=== PATIENT | female | born 1940 | race Caucasian/White ===

== ENCOUNTER 2016-07-18 19:06 | Emergency (ER) | payer MEDICARE, OTHER ==
[~2016-07-18] VITALS: Ht 172.7 cm; Wt 100.0 kg
[~2016-07-18 19:06] MED LIST: ALPR.25 PO; ASPI325T PO; FLUO-1 PO; LIPI40TA PO; LISI20 PO; METO25 PO; TAB-TAB PO; TRAM50TA PO; VITATAB25 PO
[2016-07-18 19:09] VITALS: BP 146/97; PULSE 77; RESP 20; TEMP 97.7; O2SAT 97
--- NOTE | 2016-07-18 19:39 | PD ---
HPI Chief Complaint: Flank/Kidney Pain Time Seen by Provider: 19:39 Travel History International Travel<30 days: No Contact w/Intl Traveler<30days: No Traveled to known affect area: No History of Present Illness HPI 76-year-old female presents to the emergency department for evaluation of right- sided abdominal pain that radiates to the right back. Patient states she had an injection to her groin by a physician on July 12, 2016. She states that she started with this pain on July 13, 2016. However, it resolved until today. She went to the [facility] for lunch and had a Fatoumata cheese steak sandwich. She states that after eating it, the pain returned. The patient reports nausea, but no vomiting. She states she had a normal bowel movement today without blood. The patient reports history of hysterectomy, appendectomy. Patient denies any fevers or chills. No chest pain or shortness of breath. She does report a history of nephrolithiasis, but states she has not had any issues with this and she was 31 years old. Patient denies any urinary symptoms. PFSH Past Medical History Hx Anticoagulant Therapy: Yes (BABY ASPRIN ) Arthritis: Yes Asthma: No Atrial Fibrillation: Yes Autoimmune Disease: Yes (FIBROMYALGIA) Blood Disorders: No Anxiety: Yes Depression: Yes Heart Rhythm Problems: Yes Cancer: Yes (SKIN) Cardiac Catheterization: Yes Cardiovascular Problems: Yes (HTN, HYPERLIPIDIMA ) High Cholesterol: Yes Chemotherapy: No Chest Pain: Yes Congestive Heart Failure: No COPD: No Cerebrovascular Accident: Yes (2011) Diabetes: No Diminished Hearing: No Endocrine: No Fibromyalgia: Yes Gastrointestinal Disorders: Yes GERD: No Glaucoma: No Genitourinary: No Headaches: No Hepatitis: No Hiatal Hernia: No Hypertension: Yes Immune Disorder: Yes (FIBROMYALGIA) Implanted Vascular Access Dvce: Yes Kidney Stones: Yes Musculoskeletal: Yes (LUMBAR LAMINECTOMY) Neurologic: Yes (TIA, MIGRAINES) Psychiatric: No Reproductive: No Respiratory: Yes Migraines: Yes Myocardial Infarction: Yes Radiation Therapy: No Renal Failure: No Seizures: No Sickle Cell Disease: No Sleep Apnea: Yes Thyroid Disease: No Ulcer: No Menopausal: Yes Past Surgical History Abdominal Surgery: Yes (LAP APPENDECTOMY 2006) AICD: No Appendectomy: Yes Arteriovenous Shunt: No Body Medical Devices: CARDIAC STENT ; NADIA LOWER BACK; PLATE NECK Cardiac Surgery: Yes (2 ABLATIONS) Cholecystectomy: No Coronary Stent: Yes Ear Surgery: No Endocrine Surgery: Yes (tonsillectomy) Eye Surgery: No Genitourinary Surgery: Yes (2 perirectal surgeries) Gynecologic Surgery: Yes (HYSTERECTOMY) Hysterectomy: Yes Insulin Pump: No Joint Replacement: No Neurologic Surgery: Yes (ANTERIOR CERVICAL FUSION 2007; LUMBAR LAMINECTOMY ) Oral Surgery: Yes (SINSUS SX) Pacemaker: No Thoracic Surgery: No Tonsillectomy: Yes Other Surgery: Yes (DEVIATED SEPTUM) Family History Family Hypercholesterolemia: Yes Social History Alcohol Use: No Tobacco Use: No Substance Use: No Allergies-Medications (Allergen,Severity, Reaction): Coded Allergies: Bees (Verified Allergy, Severe, BEE STING ANTI-VENOM, 07/18/16) Epinephrine (Verified Allergy, Severe, POSSIBLE ALLERGY TO EPINEPHRINE, ) Plavix (Verified Allergy, Severe, 07/18/16) Ritalin (Verified Allergy, Severe, MAKES ME A ZOMBIE, 07/18/16) Flexeril (Verified Allergy, Unknown, 07/18/16) unsure of rxn Aspirin (Verified Adverse Reaction, Severe, CAN TAKE BABY ASA, 07/18/16) Reported Meds & Prescriptions Reported Meds & Active Scripts Active Prinivil 20 mg (Lisinopril) 20 Mg Tab 40 Mg PO DAILY 30 Days Xanax 0.25 Mg (Alprazolam) Alprazolam 0.25 mg Tab 0.25 Mg PO Q8H PRN Tramadol Hcl (Tramadol HCl) 50 Mg Tab 100 Mg PO BID PRN Reported Vitamin D-1000 (Cholecalciferol) 1,000 Unit Tab 2,000 Unit PO DAILY Aspirin 325 Mg Tab (Aspirin) 325 Mg Tab 81 Mg PO DAILY Multivitamin (Multivitamins) 1 Tab Tab 1 Tab PO DAILY Lipitor (Atorvastatin Calcium) 40 Mg Tab 40 Mg PO HS Prozac (Fluoxetine HCl) 10 Mg Cap 20 Mg PO DAILY Metoprolol Tartrate 25 mg (Metoprolol Tartrate) 25 Mg Tab 25 Mg PO BID Review of Systems Except as stated in HPI: all other systems reviewed are Neg Physical Exam Narrative GENERAL: Well-nourished, well-developed female patient, ambulatory. Afebrile. SKIN: Focused skin assessment warm/dry. HEAD: Normocephalic. Atraumatic. EYES: No scleral icterus. No injection or drainage. NECK: Supple, trachea midline. No JVD or lymphadenopathy. CARDIOVASCULAR: Regular rate and rhythm without murmurs, gallops, or rubs. RESPIRATORY: Breath sounds equal bilaterally. No accessory muscle use. Lungs sounds are clear to auscultation. GASTROINTESTINAL: Abdomen soft and nondistended. Patient has diffuse tenderness to palpation. MUSCULOSKELETAL: No cyanosis, or edema. BACK: Nontender without obvious deformity. Mild right CVA tenderness. Data Data Last Documented VS Vital Signs Date Time Temp Pulse Resp B/P Pulse Ox O2 Delivery O2 Flow Rate FiO2 07/18/16 19:36 60 18 07/18/16 19:09 97.7 146/97 97 Room Air Orders Complete Blood Count With Diff (07/18/16 19:38) Comprehensive Metabolic Panel (07/18/16 19:38) Lipase (07/18/16 19:38) Urinalysis - C+S If Indicated (07/18/16 19:38) Iv Access Insert/Monitor (07/18/16 19:38) Ecg Monitoring (07/18/16 19:38) Oximetry (07/18/16 19:38) Ondansetron Inj (Zofran Inj) (07/18/16 19:45) Sodium Chloride 0.9% Flush (Ns Flush) (07/18/16 19:45) Sodium Chlorid 0.9% 500 Ml Inj (Ns 500 M (07/18/16 19:45) Morphine Inj (Morphine Inj) (07/18/16 19:45) Ct Abd/Pel W/O Iv Contrast (07/18/16 ) Cath For Specimen (07/18/16 20:45) Sodium Chlorid 0.9% 500 Ml Inj (Ns 500 M (07/18/16 21:30) Labs Laboratory Tests Test 07/18/16 07/18/16 20:00 21:00 White Blood Count 17.0 TH/MM3 Red Blood Count 5.63 MIL/MM3 Hemoglobin 17.3 GM/DL Hematocrit 52.3 % Mean Corpuscular Volume 93.0 FL Mean Corpuscular Hemoglobin 30.8 PG Mean Corpuscular Hemoglobin 33.1 % Concent Red Cell Distribution Width 13.6 % Platelet Count 161 TH/MM3 Mean Platelet Volume 9.1 FL Neutrophils (%) (Auto) 81.4 % Lymphocytes (%) (Auto) 9.8 % Monocytes (%) (Auto) 8.3 % Eosinophils (%) (Auto) 0.2 % Basophils (%) (Auto) 0.3 % Neutrophils # (Auto) 13.8 TH/MM3 Lymphocytes # (Auto) 1.7 TH/MM3 Monocytes # (Auto) 1.4 TH/MM3 Eosinophils # (Auto) 0.0 TH/MM3 Basophils # (Auto) 0.0 TH/MM3 CBC Comment DIFF FINAL Differential Comment Sodium Level 137 MEQ/L Potassium Level 4.0 MEQ/L Chloride Level 100 MEQ/L Carbon Dioxide Level 25.7 MEQ/L Anion Gap 11 MEQ/L Blood Urea Nitrogen 33 MG/DL Creatinine 1.66 MG/DL Estimat Glomerular Filtration 30 ML/MIN Rate Random Glucose 188 MG/DL Calcium Level 9.2 MG/DL Total Bilirubin 0.6 MG/DL Aspartate Amino Transf 35 U/L (AST/SGOT) Alanine Aminotransferase 69 U/L (ALT/SGPT) Alkaline Phosphatase 101 U/L Total Protein 7.5 GM/DL Albumin 3.8 GM/DL Lipase 166 U/L Urine Color YELLOW Urine Turbidity CLEAR Urine pH 6.0 Urine Specific [place] 1.022 Urine Protein NEG mg/dL Urine Glucose (UA) 300 mg/dL Urine Ketones TRACE mg/dL Urine Occult Blood MOD Urine Nitrite NEG Urine Bilirubin NEG Urine Urobilinogen LESS THAN 2.0 MG/DL Urine Leukocyte Esterase NEG Urine RBC 57 /hpf Urine WBC 2 /hpf Urine Squamous Epithelial <1 /hpf Cells Urine Mucus FEW /lpf Microscopic Urinalysis Comment CULT NOT INDICATED MDM Medical Decision Making Medical Screen Exam Complete: Yes Emergency Medical Condition: Yes Medical Record Reviewed: Yes Interpretation(s) CT abdomen/pelvis - CONCLUSION: 4 mm obstructing stone right UVJ with moderate perinephric stranding. Differential Diagnosis Diverticulitis versus UTI versus nephrolithiasis Narrative Course 76-year-old female presents to the emergency department for evaluation of abdominal pain that she had on July 13, but started up again today. CBC, CMP, lipase, UA are ordered and pending. CT the abdomen/pelvis with IV contrast is ordered and pending. IV access established. Patient is given normal saline 500 mL bolus, Zofran 4 mg IV, morphine 4 mg IV. CBC shows leukocytosis of 17.0. Compared to previous labs, this is similar to last labs in July 2015. CMP shows BUN 33, creatinine 1.66, glucose 188. Lipase is 166. UA shows moderate occult blood, 57 RBC, no evidence of acute infection. CT of the abdomen/pelvis shows 4 mm obstructing stone right UVJ with moderate perinephric stranding. Patient is given another 500 ml NS. Upon reexamination, patient states pain is tolerable at this time. I instructed the patient and need she needs to call tomorrow morning to see a urologist. I'll give her the name and number for urologist on-call. The patient states she feels comfortable going home. She will be discharged prescription for Lortab for pain and Flomax. She is to return for any acute worsening of symptoms. She verbalizes agreement and understanding. I discussed the case with my attending physician, Dr. Calderón, who is aware of all findings and agrees with plan and disposition. The patient was discharged in stable condition with instructions, including return instructions and follow up instructions. Diagnosis Primary Impression: Ureteropelvic junction calculus Referrals: Kel Jaramillo MD 1 day Patient Instructions: General Instructions, Ureteral Stones (ED) Additional Instructions: Take Lortab as directed as needed for pain. Do not take with your tramadol as this may be too much for you. Take Flomax as directed. This will help you pass the stone. Take Zofran as directed as needed for nausea. Follow up with urologist. Dr. Jaramillo is the urologist loss prevention guard today. Return to the emergency department for any acute, worsening of symptoms. Med/Other Pt SpecificInfo: Prescription(s) given Scripts Ondansetron Odt 4 Mg Tab4 Mg SL Q6HR PRN (Nausea/Vomiting) #16 TAB Ref 0 Prov:Delaney Maza 07/18/16 Tamsulosin (Flomax)0.4 Mg Cap0.4 Mg PO HS 7 Days Ref 0 Prov:Delaney Maza 07/18/16 Hydrocodone-Acetaminophen (Lortab)5-325 Mg Tab1 Tab PO Q6H PRN (PAIN) #16 TAB Ref 0 Prov:Elena Calderón MD 07/18/16 Disposition: 01 DISCHARGE HOME Condition: Stable Delaney Maza July 18, 2016 19:39
[2016-07-18] MEDS ORDERED: MORPHINE SULFATE 4 MG/ML INJ IV PUSH ONE (19:45)
[2016-07-18] MEDS ORDERED: SODIUM CHLORID 0.9% 500 ML INJ 500 ML IV ONE ×2 (19:45→21:30)
[2016-07-18] MEDS ORDERED: ONDANSETRON HCL 4 MG/2 ML VIAL IVP ONE (19:45)
[2016-07-18] MEDS ORDERED: SODIUM CHLORIDE 0.9% FLUSH 10 ML FLUSH IV FLUSH PRN (19:45)
[2016-07-18 20:13] LABS: AUTOMATED NEUTROPHIL # 13.8 TH/MM3 (1.8-7.7); BASOPHIL % 0.3 % (0.0-2.0); EOSINOPHIL % 0.2 % (0.0-4.0); HEMATOCRIT 52.3 % (35.0-46.0); HEMO FLAGS DIFF FINAL; LYMPH % 9.8 % (9.0-44.0); LYMPHOCYTE # 1.7 TH/MM3 (1.0-4.8); MEAN CORPUSCULAR HEMOGLOBIN 30.8 PG (27.0-34.0); MEAN CORPUSCULAR HGB CONC 33.1 % (32.0-36.0); MONO % 8.3 % (0.0-8.0); NEUT % 81.4 % (16.0-70.0); PLATELET COUNT 161 TH/MM3 (150-450); RED BLOOD COUNT 5.63 MIL/MM3 (4.00-5.30); RED CELL DISTRIBUTION WIDTH 13.6 % (11.6-17.2)
--- NOTE | 2016-07-18 20:31 | RADRPT ---
EXAM DATE/TIME: 07/18/2016 20:15 [place] COMPARISON: No previous studies available for comparison. INDICATIONS : Right flank pain today. ORAL CONTRAST: No oral contrast ingested. RADIATION DOSE: 11.42 CTDIvol (mGy) MEDICAL HISTORY : Stroke. Hypertension. Cardiovascular disease SURGICAL HISTORY : Hysterectomy. Appendectomy.lumbar laminectomy ENCOUNTER: Initial ACUITY: 1 day PAIN SCALE: 8/10 LOCATION: Right flank TECHNIQUE: Volumetric scanning of the abdomen and pelvis was performed. Using automated exposure control and ad justment of the mA and/or kV according to patient size, radiation dose was kept as low as reasonably achievable to obtain optimal diagnostic quality images. FINDINGS: Lung base is are clear. Marked coronary calcifications are noted. There is no pericardial effusion. The liver is free of focal defects Small stones are present in the gallbladder Granulomas are present in the spleen Pancreas and adrenals unremarkable. There is marked perinephric stranding about the right kidney with a stone the right ureteral pelvic junction. There is cyst in the left kidney measuring 3.1 cm. There are no left renal stones. Marked vascular calcifications are noted. Previous fixation seen in the lower lumbar spine In the pelvis multiple diverticula are noted without diverticulitis. There is no free air or obstruction There is no ascites or adenopathy. CONCLUSION: 4 mm obstructing stone right UVJ with moderate perinephric stranding. Sachin Andino MD FACR on July 18, 2016 at 20:26 Board Certified Radiologist. This report was verified electronically.
[2016-07-18 20:41] LABS: ANION GAP 11 MEQ/L (5-15); AST (GOT) 35 U/L (15-37); BICARBONATE 25.7 MEQ/L (21.0-32.0); BLOOD UREA NITROGEN 33 MG/DL (7-18); CHLORIDE 100 MEQ/L (98-107); GLOMERULAR FILTRATION RATE 30 ML/MIN (>89); SODIUM (NA) 137 MEQ/L (136-145)
[2016-07-18 20:56] LABS: ALKALINE PHOSPHATASE 101 U/L (45-117); ALT (GPT) 69 U/L (10-53); TOTAL BILIRUBIN ADULT 0.6 MG/DL (0.2-1.0)
[2016-07-18 21:26] LABS: BLOOD, URINE MOD (NEG); COMMENT (UR) CULT NOT INDICATED; CULTURE IF INDICATED CULT NOT INDICATED; GLUCOSE,URINE 300 mg/dL (NEG); KETONE, URINE TRACE mg/dL (NEG); MUCUS URINE FEW /lpf (OCC); NITRITE,URINE NEG (NEG); SQUAMOUS EPITHELIAL CELL URINE <1 /hpf (0-5); URINE COLOR YELLOW (YELLW/STRAW)
[2016-07-18] MEDS ORDERED: HYDR-3533 PO (21:34)
[2016-07-18] MEDS ORDERED: TAMS5CAP PO (21:37)
[2016-07-18] MEDS ORDERED: ONDA4TAB7 SL (21:38)
== END 2016-07-18 22:33 | disposition home or self-care (01) ==
LOC: NEPC 19:06
DX: N20.1 Calculus of ureter (principal); I48.91 Unspecified atrial fibrillation; M19.90 Unspecified osteoarthritis, unspecified site; M79.7 Fibromyalgia; F41.8 Other specified anxiety disorders; I10 Essential (primary) hypertension; E78.00 Pure hypercholesterolemia, unspecified; I25.2 Old myocardial infarction; Z95.5 Presence of coronary angioplasty implant and graft; Z79.01 Long term (current) use of anticoagulants
CPT/HCPCS: 74176; 80053; 81001; 83690; 85025; 96374; 96375; 99284; J2270; J2405; J7040; P9612

== ENCOUNTER → 2017-02-22 | Day surgery (SDC) | payer OTHER ==
[~2017-02-22] MED LIST changes: +HYDR-3533 PO; +LACTATED RINGER'S 1000 ML INJ 1,000 ML ONE; +MIDAZOLAM HCL 2 MG/2 ML VIAL ONE; +ONDA4TAB7 SL; +PROPOFOL 200 MG/20 ML AMP IV ONE; +TAMS5CAP PO
--- NOTE | 2017-02-22 14:45 | TN ---
cc: ECHO SCHILLING M.D. DATE OF SURGERY: February 22, 2017. PREOPERATIVE DIAGNOSIS Right hip osteoarthritis, hip arthrogryposis (hip stiffness). POSTOPERATIVE DIAGNOSIS Right hip osteoarthritis, hip arthrogryposis (hip stiffness). PROCEDURE: Right hip manipulation, intra-articular steroid injection, fluoroscopic guidance of needle under anesthesia. SURGEON Peggy Schilling MD LATEX RIBBON MACHINE OPERATOR: Staff ANESTHESIA General SPECIMEN None COMPLICATIONS None. CONDITION: Condition stable PLAN OF ACTIVITIES Per orders. PROCEDURE The patient was operating room had satisfactory anesthesia by the part of Anesthesia. The right hip lower extremity was prepped and draped in usual sterile. The extremity is noted usual sterile manner. A 18 gauge spinal needle was introduced into the right hip joint under fluoroscopic guidance. The hip was injected with 1 cc Kenalog 40 and 4 cc of 1% plain lidocaine. The needle was withdrawn. Band-Aid placed over injection site. The hip was manipulated under anesthesia. Flexion was to 100 degrees abduction was to 25 degrees with limited rotation. The patient tolerated the procedure well and arrived in the Recovery Room in stable and satisfactory condition. X-RAYS Right hip one view AP status post right hip manipulation. No obvious fracture dislocation subluxation. Satisfactory placement 18 gauge spinal needle in the right hip joint. Right hip osteoarthritis. MD GARLAND Noyola/wanda /1:47 PM /1:51 PM
== END | disposition home or self-care (01) ==
LOC: ESDC 11:27
PROVIDERS: ATTEND Orthopaedic Surgery Orthopaedic Surgery of the Spine
DX: Q68.8 Other specified congenital musculoskeletal deformities (principal); M16.11 Unilateral primary osteoarthritis, right hip
CPT/HCPCS: 01200; 27275; 73501; 76000; J2250; J3010; J7120

== ENCOUNTER → 2017-08-12 | Outpatient (CLI) | payer OTHER ==
[~2017-08-12] MED LIST changes: +ATOR40TA16 PO; +BILB30CA PO; +ECASA81 PO; +FLUO20CA12 PO; +HYDR-3583 PO; -LACTATED RINGER'S 1000 ML INJ 1,000 ML ONE; +LUTE6CAP2 PO; +METO25TA3 PO; -MIDAZOLAM HCL 2 MG/2 ML VIAL ONE; +MULT1TAB PO; -PROPOFOL 200 MG/20 ML AMP IV ONE; +REFRDRO EACH EYE; +VITA2000 PO
== END ==
LOC: CPRE 11:43
PROVIDERS: ATTEND Orthopaedic Surgery Orthopaedic Trauma
DX: M79.609 Pain in unspecified limb (principal)

== ENCOUNTER 2017-08-25 05:43 | Inpatient (IN) | payer OTHER, MEDICARE ==
[~2017-08-25] VITALS: Ht 170.2 cm; Wt 102.3 kg
[~2017-08-25 05:43] MED LIST changes: -ALPR.25 PO; -ASPI325T PO; -FLUO-1 PO; -HYDR-3533 PO; -HYDR-3583 PO; -LIPI40TA PO; -LISI20 PO; -METO25 PO; -ONDA4TAB7 SL; -TAB-TAB PO; -TAMS5CAP PO; -VITATAB25 PO
[2017-08-25] MEDS ORDERED: ceFAZolin 2 GM PREMIX 50 ML IV SCH (06:15)
[2017-08-25] MEDS ORDERED: CHLORHEXIDINE GLUCONATE 2 % 1 PACK (2 CLOTHS) TOPICAL PRN (06:15)
[2017-08-25] MEDS ORDERED: METOPROLOL TARTRATE 25 MG TAB PO PRN (06:15)
[2017-08-25] MEDS ORDERED: LACTATED RINGER'S 1000 ML IV PRN (06:15)
[2017-08-25] MEDS ORDERED: FAMOTIDINE 20 MG/2 ML VIAL IV PUSH ONE (06:15)
[2017-08-25] MEDS ORDERED: CHLORHEXIDINE GLUCONATE 4% SOLN 120 ML BTL TOPICAL SCH (06:15)
[2017-08-25] MEDS ORDERED: ONDANSETRON HCL 4 MG/2 ML VIAL IV PUSH ONE (06:15)
[2017-08-25] MEDS ORDERED: VANCOMYCIN 1000 MG/NS 250 ML (for <70 kg) IV SCH ×2 (06:15)
[2017-08-25] MEDS ORDERED: GABAPENTIN 300 MG CAP PO ONE (06:15)
[2017-08-25] MEDS ORDERED: POVIDONE IODINE 5% (ANTISEPSIS KIT) 4 APPLICATIONS EACH NARE PRN (06:15)
[2017-08-25] MEDS ORDERED: DEXAMETHASONE SOD PHOS 20 MG/5 ML VIAL IV PUSH ONE (06:15)
[2017-08-25] MEDS ORDERED: CELECOXIB 200 MG CAP PO ONE (06:15)
[2017-08-25] MEDS ORDERED: SODIUM CHLORID 0.9% 500 ML IV PRN (06:15)
[2017-08-25] MEDS ORDERED: ACETAMINOPHEN 1000 MG/100 ML 100 ML IV ONE (06:15)
[2017-08-25] MEDS ORDERED: GENTAMICIN SULFATE 80 MG/2 ML VIAL ONE (06:32)
[2017-08-25] MEDS ORDERED: VANCOMYCIN 1 GM/200 ML INJ 200 ML IV ONE (06:53)
[2017-08-25] MEDS ORDERED: BUPIVACAINE-EPI PF 0.25% INJ 20 ML, BUPIVACAINE LIPOSO PF 1.3% INJ 20 ML in SODIUM CHLO... P-ARTICULR SCH (07:00)
[2017-08-25] MEDS ORDERED: TRANEXAMIC ACID INJ 1,500 MG in SODIUM CHLORIDE 0.9% INJ 100 ML IV SCH (07:00)
[2017-08-25] MEDS ORDERED: VANCOMYCIN 1 GM/200 ML PREMIX ON-CALL IV SCH (07:15)
[2017-08-25] MEDS ORDERED: ECASA81 PO (07:35)
[2017-08-25] MEDS ORDERED: HYDR-3583 PO (07:35)
[2017-08-25] MEDS ORDERED: VANCOMYCIN HCL 1000 MG VIAL ONE (08:22)
[2017-08-25] MEDS: LACTATED RINGER'S 1000 ML INJ 1,000 ML IV SCH ×2 (08:51→21:21)
[2017-08-25] MEDS ORDERED: KETOROLAC TROMETHAMINE 30 MG/ML (IVP) VIAL IV PUSH SCH (09:00)
[2017-08-25] MEDS ORDERED: ACETAMINOPHEN/HYDROcodone 325 MG/5 MG TAB PO PRN (09:00)
[2017-08-25] MEDS ORDERED: POLYVINYL ALC-POVIDONE 1.4/0.6% PF OPTH SOLN 0.4 ML EACH EYE PRN (09:00)
[2017-08-25] MEDS: FLUoxetine HCL 20 MG CAP PO SCH (09:00)
[2017-08-25] MEDS ORDERED: Post-op Orders (for Pharmacy) XX ONE (09:00)
[2017-08-25] MEDS ORDERED: MORPHINE SULFATE 4 MG/ML INJ IV PUSH PRN (09:00)
[2017-08-25] MEDS ORDERED: ACETAMINOPHEN/HYDROcodone 325 MG/7.5 MG TAB PO PRN (09:00)
[2017-08-25] MEDS ORDERED: ACETAMINOPHEN 1000 MG/100 ML 100 ML IV SCH (09:00)
[2017-08-25] MEDS ORDERED: NALOXONE HCL 0.4 MG/ML AMP IV PUSH PRN (09:00)
[2017-08-25] MEDS: CHOLECALCIFEROL (VIT D3) 1000 UNIT TAB PO SCH (09:00)
--- NOTE | 2017-08-25 09:04 | PD.OP ---
cc: Niko Clark MD Operative Report Date of Surgery: Aug 25, 2017 Preoperative Diagnosis: Severe right hip osteoarthritis Postoperative Diagnosis: Procedure: Right total hip arthroplasty by anterior approach Anesthesia: General Surgeon: Niko Clark Account Coordinator(s): NEREIDA Nagel PA-C The surgical procedure was assisted by my physician executive marketing assistant. My P.A. presence was necessary throughout this case for the manipulation and positioning of the surgical extremity. My P.A. was assisting me throughout the duration of this procedure. The skill set of a physician executive marketing assistant was medically necessary to complete this procedure. During the surgical case the certified ophthalmic surgical assistant was working at the back table and the physician executive marketing assistant was directly assisting me. Operation and Findings: PLAN OF ACTIVITY Weight bear as tolerated. IMPLANTS USED DePuy Corail size [12] collared stem with a size [52] Milford Gription cup, [52 /36] Altrx poly liner, and a 36 -2 metal head. DETAILS OF PROCEDURE: This patient has a long history of hip pain. Patient was found to have severe osteoarthritis. The patient had radiographic evidence of joint space narrowing with assd-aw-oeuz arthritis and osteophytes around the acetabulum as well as the femoral head. There was also some cystic changes. The patient failed conservative treatment with pain medications, anti-inflammatories, physical therapy, assistive devices including a cane, as well as therapeutic injection of the hip. Patient's hip arthritis was limiting his ability to ambulate and perform activities of daily living. The patient wished to proceed with surgery and informed consent was obtained. Operative site was marked. I discussed both posterior approach and anterior approach with the patient and decision was made for anterior approach. Patient was brought to OR and placed on OR table. IV sedation and general anesthesia was administered by anesthesiologist. Patient positioned on a Lily table and was given IV antibiotics. Time-out procedure was performed. The hip and thigh were prepped with alcohol followed by Hibiclens. The thigh was draped in the usual sterile fashion. Clean Air Suite was used for this procedure. The procedure began with a 5-inch incision over the anterolateral thigh. Subcutaneous tissue was dissected with Bovie. The fascia over the tensa fasciae latae was incised. Care was taken to avoid injury to the lateral femoral cutaneous nerve. The tensor muscle was retracted laterally. Sartorius was retracted medially. Retractors were now placed. The reflected head of the rectus is now elevated. A capsulotomy was performed over the anterior head capsule. Sutures were placed to help retract the capsule. At this point the femoral head and neck were identified. With soft tissue protected, oscillating saw was used to make a cut through the femoral neck, the femoral head was now removed. At this point attention was turned to preparation of the acetabulum. The labrum was excised. The acetabulum was sequentially reamed up to size [52]. A Milford cup was now placed. Fluoroscopy was used to aid in identification of appropriate version. Cup was fully impacted and found to have excellent fit. Hole eliminator was now placed. The liner was now impacted into the cup. At this point the hip was externally rotated. A hook was placed around the proximal femur. The capsule was released off the lateral and medial femur. The hip was now extended and adducted. Retractors were placed around the proximal femur to allow for exposure. A box osteotome was used to remove the lateral cortex of the femoral neck. A broach was used to help lateralize the prosthesis. Canal finder was used to create a path down the canal. Next, the canal was sequentially broached up to size [12]. This was found to be an excellent fit. Calcar planer was placed. A standard head was placed, and the hip was reduced. The hip was found to have excellent stability with good range of motion. The leg lengths were measured under fluoroscopy. The right leg was slightly longer than the left. A -2 head was now trialed. X-rays now revealed equal leg lengths. Trial broach was removed. The Corail stem was opened. Stem was fully impacted into the proximal femur in appropriate version. The femoral head was placed. The hip was again reduced. Fluoroscopy confirmed excellent alignment of prosthesis. The wound was thoroughly irrigated and capsule was closed with #1 Vicryl. The fascia over the tensor fasciae muscle was closed with #1 Vicryl, subcutaneous tissue was closed with 3-0 Vicryl and the skin was closed with jose alberto and Dermabond skin closure. The capsule layers, muscle, and subcutaneous tissue were injected with a mixture of saline and bupivicaine. Dressings were applied. The patient was transferred to Recovery Room in stable condition. Niko Clark MD Aug 25, 2017 09:04
[2017-08-25] MEDS ORDERED: DO NOT ADM ANY ANTICOAGULANT DRUGS PRN (09:28)
[2017-08-25] MEDS ORDERED: TRANEXAMIC ACID INJ 1,000 MG in SODIUM CHLORIDE 0.9% INJ 100 ML IV ONE (09:30)
[2017-08-25] MEDS ORDERED: MIDAZOLAM HCL 2 MG/2 ML VIAL ONE (09:31)
[2017-08-25] MEDS ORDERED: *morphine SULFATE 4 MG/ML PERIprocedure ONLY ONE (09:58)
--- NOTE | 2017-08-25 10:21 | RADRPT ---
EXAM DATE: 08/25/2017 10:03 AM EDT AGE/SEX: 77 years / Female INDICATIONS: Right total hip CLINICAL DATA: This is the patient's initial encounter. Patient reports that signs and symptoms have been present for 1 day and indicates a pain score of Nonresponsive. MEDICAL/SURGICAL HISTORY: None. None. COMPARISON: No prior exams available for comparison. FINDINGS: The patient is post right hip arthroplasty. The orthopedic hardware is in excellent position. The vis ualized portions of the pelvis are grossly intact. CONCLUSION: Orthopedic hardware in excellent position. Electronically signed by: Mina Andino MD 08/25/2017 10:20 AM EDT
[2017-08-25] MEDS ORDERED: ONDANSETRON ODT 4 MG TAB PO PRN (11:30)
[2017-08-25] MEDS: ACETAMINOPHEN/HYDROcodone 325 MG/10 MG TAB PO PRN (11:37)
[2017-08-25 11:52] VITALS: BP 171/81; PULSE 67; RESP 16; TEMP 95.2
[2017-08-25] MEDS ORDERED: ONDANSETRON HCL 4 MG/2 ML VIAL IV ONE (12:00)
[2017-08-25] MEDS ORDERED: LIDOCAINE HCL 1% PF 5 ML SYRINGE OTHER ONE (12:00)
[2017-08-25] MEDS ORDERED: NEOSTIGMINE 5 MG/5 ML SYRINGE IV PUSH ONE (12:00)
[2017-08-25] MEDS ORDERED: ceFAZolin INJ 1,000 MG VIAL IV ONE (12:00)
[2017-08-25] MEDS ORDERED: ROCURONIUM INJ 50 MG/5 ML SYRINGE IV PUSH ONE (12:00)
[2017-08-25] MEDS ORDERED: PHENYLEPH/NS 1000 MCG/10 ML SYR IV ONE (12:00)
[2017-08-25] MEDS ORDERED: STERILE WATER FOR INJECTION 10 ML VIAL IV ONE (12:00)
[2017-08-25] MEDS ORDERED: PROPOFOL 200 MG/20 ML AMP IV ONE (12:00)
[2017-08-25] MEDS ORDERED: GLYCOPYRROLATE 1 MG/5 ML SYRINGE IV PUSH ONE (12:00)
[2017-08-25] MEDS ORDERED: LACTATED RINGER'S 1000 ML INJ 1,000 ML IV ONE (12:00)
[2017-08-25] MEDS ORDERED: hydrALAZINE HCL 20 MG/ML VIAL IV ONE (12:00)
[2017-08-25] MEDS ORDERED: SODIUM CHLORIDE 0.9% 10 ML VIAL IV ONE (12:00)
[2017-08-25] MEDS: ceFAZolin 2 GM PREMIX 50 ML IV SCH ×3 (12:45→23:25)
--- NOTE | 2017-08-25 14:54 | RADRPT ---
EXAM DATE: 08/25/2017 2:04 PM EDT AGE/SEX: 77 years / Female INDICATIONS: Right total hip arthroplasty. CLINICAL DATA: This is the patient's initial encounter. Patient reports that signs and symptoms have been present for 1 day and indicates a pain score of Nonresponsive. MEDICAL/SURGICAL HISTORY: Non-responsive. Non-responsive. COMPARISON: No prior exams available for comparison. FINDINGS: 2 fluoroscopic images of the right hip demonstrate right hip arthroplasty in place. Arthroplasty comp onents appear well-positioned and in anatomic alignment. No significant bony fracture. CONCLUSION: 1. Right hip arthroplasty, as above. Electronically signed by: Ajith Sung MD 08/25/2017 2:53 PM EDT
[2017-08-25 16:00] VITALS: BP_SYST 117; BP_SYST 131; BP_DIAS 56; BP_DIAS 68; PULSE 70; PULSE 74; RESP 17; RESP 20; TEMP 97.4; TEMP 99.6; O2SAT 94; O2SAT 97
[2017-08-25] MEDS: METOPROLOL TARTRATE 25 MG TAB PO SCH (17:08)
[2017-08-25] MEDS: ACETAMINOPHEN 1000 MG/100 ML 100 ML IV SCH (17:09)
[2017-08-25 18:04] VITALS: BP 109/56; PULSE 66; RESP 14; TEMP 97.2; O2SAT 99
[2017-08-25 19:41] VITALS: BP 136/65; PULSE 79; RESP 18; TEMP 98.7; O2SAT 97
[2017-08-25] MEDS: VANCOMYCIN INJ 1,000 MG in SODIUM CHLOR 0.9% 250 ML INJ 250 ML IV SCH (21:54)
[2017-08-25] MEDS: ATORVASTATIN 40 MG TAB PO SCH (21:54)
[2017-08-25 23:39] VITALS: BP 137/60; PULSE 78; RESP 18; TEMP 97.4; O2SAT 96
[2017-08-26] MEDS ORDERED: diphenhydrAMINE HCL 50 MG CAP PO PRN (00:30)
[2017-08-26] MEDS: ACETAMINOPHEN/HYDROcodone 325 MG/10 MG TAB PO PRN ×3 (00:33→17:50)
[2017-08-26 03:56] VITALS: BP 125/59; PULSE 76; RESP 18; TEMP 97.2; O2SAT 97
[2017-08-26 06:17] LABS: HEMOGLOBIN 13.2 GM/DL (11.6-15.3)
[2017-08-26] MEDS: ACETAMINOPHEN 1000 MG/100 ML 100 ML IV SCH ×2 (06:17→17:53)
[2017-08-26] MEDS: METOPROLOL TARTRATE 25 MG TAB PO SCH ×2 (06:18→17:50)
--- NOTE | 2017-08-26 06:31 | PD.ORT.PN ---
Subjective Subjective Remarks POD 1 Right Anterior JOSSIE -doing well. pain controlled. out of bed with walker. ambulating to bathroom. reports muscle soreness in hip Objective Vitals Vital Signs Date Time Temp Pulse Resp B/P (MAP) Pulse Ox O2 Delivery O2 Flow Rate FiO2 08/26/17 03:56 97.2 76 18 125/59 (81) 97 08/26/17 00:47 Nasal Cannula 2.00 08/25/17 23:39 97.4 78 18 137/60 (85) 96 08/25/17 19:41 98.7 79 18 136/65 (88) 97 08/25/17 19:20 Room Air 08/25/17 16:00 97.4 70 17 117/56 (76) 97 08/25/17 11:52 95.2 67 16 171/81 (111) 08/25/17 11:10 97.7 64 16 169/74 (105) 99 Nasal Cannula 2 08/25/17 10:30 97.6 65 14 150/70 (96) 96 Nasal Cannula 6 08/25/17 10:15 97.6 63 14 149/69 (95) 96 Nasal Cannula 6 08/25/17 10:00 97.6 62 14 142/67 (92) 96 Nasal Cannula 6 08/25/17 09:45 97.6 63 16 149/68 (95) 96 Nasal Cannula 6 08/25/17 09:30 97.6 63 16 123/60 (81) 96 Nasal Cannula 6 08/25/17 09:28 97.6 61 16 116/55 (75) 96 Nasal Cannula 6 08/25/17 06:30 98.4 63 18 182/83 (116) 99 I/O 08/25/17 08/25/17 08/25/17 08/26/17 08/26/17 08/26/17 07:00 15:00 23:00 07:00 15:00 23:00 Intake Total 1900 ml 610 ml Output Total 300 ml Balance 1600 ml 610 ml Intake Oral 360 ml IV Total 200 ml 250 ml Other 1700 ml Output Estimated Blood Loss 300 ml # Voids 1 3 # Bowel Movements 0 Result Diagram: 08/26/17 0593 Imaging Last 24 hours Impressions Hip and Pelvis X-Ray 08/25/17 0894 Signed Impressions: CONCLUSION: Orthopedic hardware in excellent position. Objective Remarks RLE: dressing clean and dry. intact. nvi. Assessment & Plan Assessment and Plan 1) right Anterior JOSSIE - POD 1 -WBAT -maintain dressing x 6 days and begin daily dressing changes with primapore on POD 7 -keep clean and dry -DVT prophylaxis with 81mg aspirin BID x 30 days -work with therapy today. if doing well, can plan for DC with [facility] on Tuesday. if needs quite a bit of help. plan for rehab. -f/u with Amber or PA in 2 weeks Lenny Lombardo/Electrical Maintenance Supervisor PA Aug 26, 2017 06:31
--- NOTE | 2017-08-26 06:33 | HHI.FF ---
Face to Face Verification Diagnosis: (1) S/P total hip arthroplasty Physical Therapy Gait training Hip: Total hip, Protocol: Right Right LE Weight Bearing: WB as tolerated Nursing Dressing Changes: Daily dressing change (beginnin on POD 7 with primapore dressing. maintain surgical mesh on wound. ) I have seen patient Bethany Reilly on 08/26/17. My clinical findings support the need for the requested home health care services because: Ltd mobility - disease progression I certify that my clinical findings support that this patient is homebound because: Post-op weakness Lenny Lombardo/Newspaper Publisher PA Aug 26, 2017 06:33
[2017-08-26] MEDS: VANCOMYCIN INJ 1,000 MG in SODIUM CHLOR 0.9% 250 ML INJ 250 ML IV SCH (08:10)
[2017-08-26] MEDS: RIVAROXABAN 10 MG TAB PO SCH (08:10)
[2017-08-26] MEDS: FLUoxetine HCL 20 MG CAP PO SCH (08:10)
[2017-08-26] MEDS: CHOLECALCIFEROL (VIT D3) 1000 UNIT TAB PO SCH (08:12)
[2017-08-26 08:28] VITALS: BP 172/74; PULSE 74; RESP 18; TEMP 97.7; O2SAT 96
[2017-08-26] MEDS: LACTATED RINGER'S 1000 ML INJ 1,000 ML IV SCH ×2 (09:51→22:21)
[2017-08-26 12:00] VITALS: BP 147/65; PULSE 64; RESP 18; TEMP 97.1; O2SAT 94
[2017-08-26 16:00] VITALS: BP 138/64; PULSE 67; RESP 18; TEMP 97.1; O2SAT 96
[2017-08-26 19:00] VITALS: BP 132/62; PULSE 58; RESP 17; TEMP 97.9; O2SAT 97
[2017-08-26] MEDS: DOCUSATE SODIUM 100 MG CAP PO SCH (22:05)
[2017-08-26] MEDS: ATORVASTATIN 40 MG TAB PO SCH (22:05)
[2017-08-27] VITALS: BP 169/77; PULSE 65; RESP 17; TEMP 97.5; O2SAT 93
[2017-08-27] MEDS: ACETAMINOPHEN/HYDROcodone 325 MG/10 MG TAB PO PRN ×2 (01:16→08:16)
[2017-08-27 04:00] VITALS: BP 135/77; PULSE 69; RESP 17; TEMP 97.4; O2SAT 96
[2017-08-27] MEDS: METOPROLOL TARTRATE 25 MG TAB PO SCH (04:00)
[2017-08-27] MEDS: ACETAMINOPHEN 1000 MG/100 ML 100 ML IV SCH (06:12)
--- NOTE | 2017-08-27 07:52 | PD.ORT.PN ---
Subjective Post Op Day #: 2 Subjective Remarks Patient resting comfortably in bed in NAD. Patient reports minimal pain to the right hip. Objective Vitals Vital Signs Date Time Temp Pulse Resp B/P (MAP) Pulse Ox O2 Delivery O2 Flow Rate FiO2 08/27/17 04:00 97.4 69 17 135/77 (96) 96 08/27/17 00:00 97.5 65 17 169/77 (107) 93 08/26/17 19:00 97.9 58 17 132/62 (85) 97 08/26/17 18:46 Room Air 08/26/17 16:00 97.1 67 18 138/64 (88) 96 08/26/17 12:00 97.1 64 18 147/65 (92) 94 08/26/17 09:12 18 08/26/17 08:28 97.7 74 18 172/74 (106) 96 I/O 08/26/17 08/26/17 08/26/17 08/27/17 08/27/17 08/27/17 07:00 15:00 23:00 07:00 15:00 23:00 Intake Total 610 ml 350 ml 250 ml Balance 610 ml 350 ml 250 ml Intake Oral 360 ml IV Total 250 ml 350 ml 250 ml # Voids 3 3 3 # Bowel Movements 0 Result Diagram: 08/26/17 0544 Imaging Last 24 hours Impressions Hip and Pelvis X-Ray 08/25/17 0851 Signed Impressions: CONCLUSION: Orthopedic hardware in excellent position. Objective Remarks RLE: dressing has mild drainage but stable. Dressing is intact. + NVI. SILT distally. Calf is soft and nontender. Assessment & Plan Ortho Post Op Day #: 2 Problem List: Assessment and Plan 1) right Anterior JOSSIE - POD 2 -WBAT -maintain dressing x 6 days and begin daily dressing changes with primapore on POD 7 -keep clean and dry -DVT prophylaxis with 81mg aspirin BID x 30 days -plan for DC with C today. Stable per ortho. -f/u with Amber or [facility] in 2 weeks Mina Maier Aug 27, 2017 07:52
[2017-08-27 08:10] VITALS: BP 163/69; PULSE 66; RESP 20; TEMP 97.5; O2SAT 98
[2017-08-27] MEDS: FLUoxetine HCL 20 MG CAP PO SCH (08:16)
[2017-08-27] MEDS: CHOLECALCIFEROL (VIT D3) 1000 UNIT TAB PO SCH (08:16)
[2017-08-27] MEDS: RIVAROXABAN 10 MG TAB PO SCH (08:16)
[2017-08-27] MEDS: DOCUSATE SODIUM 100 MG CAP PO SCH (08:16)
[2017-08-27] MEDS: LACTATED RINGER'S 1000 ML INJ 1,000 ML IV SCH (10:51)
[2017-08-27 12:00] VITALS: BP 119/57; PULSE 70; RESP 20; TEMP 98.1; O2SAT 99
== END 2017-08-27 13:37 | disposition home health service (06) | DRG 470 ==
LOC: HSDI 05:43 → N06A 11:20
PROVIDERS: ADMIT Orthopaedic Surgery Orthopaedic Trauma; ATTEND Orthopaedic Surgery Orthopaedic Trauma
PROC: 0SR902Z Replacement of Right Hip Joint with Metal on Polyethylene Synthetic Substitute, Open Approach (ICD-10-PCS; principal; 2017-08-25 07:06)
DX: M16.11 Unilateral primary osteoarthritis, right hip (principal); E66.9 Obesity, unspecified; I10 Essential (primary) hypertension; Z88.1 Allergy status to other antibiotic agents; Z88.8 Allergy status to other drugs, medicaments and biological substances; Z79.82 Long term (current) use of aspirin; Z95.5 Presence of coronary angioplasty implant and graft; Z90.710 Acquired absence of both cervix and uterus; Z68.35 Body mass index [BMI] 35.0-35.9, adult
CPT/HCPCS: 73501; 73502; 76000; 85014; 85018; 86850; 86900; 86901; C1776; C9290; J0131; J0360; J0690; J1100; J1580; J2250; J2270; J2370; J2405; J2710; J3010; J3370; J7050; J7120; Q0163